=== PATIENT | male | born 1985 | race Caucasian/White ===

== ENCOUNTER 2019-02-16 10:46 | Emergency (ER) | payer SELFPAY ==
[2019-02-16] MEDS ORDERED: Diphtheria,Pertussis(Acell),Tetanus Vaccine 0.5 ML Syringe IM ONE (10:52)
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
[2019-02-16] MEDS ORDERED: Bacitracin Oint 1 GM U/D Packet TOP ONE (10:56)
--- NOTE | 2019-02-16 11:27 | CT ---
EXAMINATION: Non contrast CT head and facial bones. Coronal and sagittal reformats. HISTORY: Pain FINDINGS: Head: No evidence of intra or extra axial hemorrhage, mass, midline shift, hydrocephalus or edema. No hypoattenuation changes in the major vascular territories to suggest acute infarct. No abnormal intracranial calcifications are detected. No evidence of substantial vascular calcifications. Orbits and globes appear symmetric. The pituitary fossa appears unremarkable. Calvarium is intact. No evidence of skull fracture. Patient bones: Mildly angulated and comminuted bilateral nasal bone fractures are noted. This includes the left maxillary frontal process. Mild leftward deviation of the nasal septum which otherwise appears intact. Opacification of several ethmoid air cells. The orbital and maxillary guillory appear intact. The maxilla and mandible appears intact. Diaphragmatic arches and pterygoid plates are intact. Visualized cervical spine appears normal. Bone mineralization is otherwise normal. IMPRESSION: 1. Comminuted bilateral nasal bone fractures, mildly displaced. 2. Otherwise no evidence of additional facial bone or intracranial injury.
== END 2019-02-16 11:50 | disposition home or self-care (01) ==
LOC: MW.ED 10:46
DX: S02.2XXA Fracture of nasal bones, initial encounter for closed fracture (principal); S01.81XA Laceration without foreign body of other part of head, initial encounter; S09.90XA Unspecified injury of head, initial encounter; Y04.8XXA Assault by other bodily force, initial encounter
CPT/HCPCS: 70450; 70450-26; 70486; 70486-26; 99283-25; 99284